=== PATIENT | male | born 1985 | race Caucasian/White ===

== ENCOUNTER 2022-11-07 14:45 | Outpatient (OUT) | payer OTHER, SELFPAY ==
--- NOTE | 2022-11-07 14:58 | XR_ITS ---
[address] [address] Patient Name: BROOKE NIEVES MRN: [id number] date: 1985 Sex: M Assigned Patient Location: RAD Current Patient Location: [facility] Accession/Order Number: [id number] Exam Date: 11/07/2022 15:00 Report Date: 11/09/2022 07:53 At the request of: CHACE STATON Procedure: XR abdomen 1V EXAMINATION: XR abdomen 1V HISTORY: Kidney stone COMPARISON: 07/03/2021 FINDINGS: KIDNEY/URETER - RIGHT: No visible renal or ureteral calcifications. KIDNEY/URETER - LEFT: No visible renal or ureteral calcifications. PELVIS: No visible ureteral calcifications. Any visible calcifications favor phleboliths. BOWEL: No abnormal dilation or deviation. BONES: No acute abnormality. OTHER: Negative. No abnormal gaseous collections. IMPRESSION: No definite urinary tract calculi Electronically authenticated by: JERRELL COLINDRES Date: 11/09/2022 07:53
== END 2022-11-07 14:46 | disposition home or self-care (01) ==
PROVIDERS: Visit Provider Urology
DX: N20.0 Calculus of kidney (principal)
CPT/HCPCS: 74018

== ENCOUNTER 2022-12-13 08:03 | Outpatient (OUT) | payer OTHER, SELFPAY ==
--- NOTE | 2022-12-13 08:26 | US_ITS ---
The [address] [address] Patient Name: BROOKE NIEVES MRN: [id number] date: 1985 Sex: M Assigned Patient Location: US Current Patient Location: US Accession/Order Number: [id number] Exam Date: 12/13/2022 08:34 Report Date: 12/13/2022 09:34 At the request of: CHACE STATON Procedure: US renal BI PROCEDURE: US renal BI DATE: 12/13/2022 7:34 AM CDT COMPARISONS: CT abdomen and pelvis from 12/25/2020 INDICATION FOR EXAMINATION: 36 years Male HEMATURIA R31.9 TECHNIQUE: Grayscale and color Doppler technique were utilized to evaluate the retroperitoneum. FINDINGS: KIDNEYS: The right kidney measures 11.0 x 6.0 x 5.9 cm. The left kidney measures 11.7 x 5.4 x 4.8 cm. There is no evidence of hydronephrosis. There is no ultrasonic evidence of solid focal renal masses or other significant renal parenchymal abnormalities. Subtle increased echogenicity is noted of the upper pole left kidney which could represent nonobstructing nephrolithiasis. There is no evidence of cortical thinning. URINARY BLADDER: There is no ultrasonic evidence of urinary bladder abnormalities. Bladder volume at the time of this exam is approximately 223 mL. ASSESSMENT: Possible nonobstructing nephrolithiasis identified upper pole left kidney. Ultrasound does not perfectly sensitive or specific in evaluating nephrolithiasis. The kidneys and urinary bladder show no other ultrasonic evidence of abnormalities. Electronically authenticated by: SYDNI KELLEY Date: 12/13/2022 09:34
== END 2022-12-13 08:04 | disposition home or self-care (01) ==
PROVIDERS: Visit Provider Urology
DX: R31.9 Hematuria, unspecified (principal)
CPT/HCPCS: 76775

== ENCOUNTER 2023-01-24 09:15 | Outpatient (OUT) | payer OTHER, SELFPAY ==
[2023-01-24 09:55] LABS: Basophils Percent Auto 0.7 % (0.2-2.0); Eosinophils Absolute Auto 0.1 10^3/uL (0.0-0.7); Eosinophils Percent Auto 2.5 % (0.9-7.0); Hematocrit 43.8 % (42.0-54.0); Hemoglobin 14.4 g/dL (14.0-18.0); Immature Granulocytes Abs Auto 0.02 10^3/uL (0.00-0.03); Immature Granulocytes Pct Auto 0.4 % (0.0-0.5); Lymphocytes Absolute Auto 1.4 10^3/uL (1.2-3.8); Lymphocytes Percent Auto 24.2 % (20.5-60.0); Mean Corpuscular HGB Conc 32.9 g/dL (29.9-35.2); Mean Corpuscular Hemoglobin 29.3 pg (25.9-34.0); Monocytes Absolute Auto 0.5 10^3/uL (0.3-0.8); Monocytes Percent Auto 8.5 % (1.7-12.0); Neutrophils Absolute Auto 3.6 10^3/uL (1.4-6.5); Neutrophils Percent Auto 63.7 % (43.0-75.0); Platelet Count 316 10^3/uL (150-450); Red Blood Count 4.92 10^6/uL (4.70-6.10); Red Cell Distribution Width 12.9 % (11.0-15.0); White Blood Count 5.6 10^3/uL (4.0-11.0)
[2023-01-24 10:52] LABS: Anion Gap 11.4; BUN Creatinine Ratio 17.7; Calcium 9.9 mg/dL (8.5-10.1); Carbon Dioxide 30.3 mmol/L (21.0-32.0); Chloride 103 mmol/L (98-107); Estimated GFR (African America >60 (>=60); Estimated GFR (Non-African Ame >60 (>=60); Glucose 100 mg/dL (74-106); Potassium 4.7 mmol/L (3.5-5.1); Sodium 140 mmol/L (136-145)
[2023-01-24 10:53] LABS: Alanine Aminotransferase 38 U/L (16-63); Albumin Globulin Ratio 1.1; Albumin Level 4.2 g/dL (3.4-5.0); Alkaline Phosphatase 73 U/L (46-116); Aspartate Amino Transferase 28 U/L (15-37); Bilirubin Total 0.4 mg/dL (0.2-1.0); Chol HDL Ratio 3.4; Cholesterol 249 mg/dL (<=200); HDL Cholesterol 73 mg/dL (40-60); Thyroid Stimulating Hormone 1.671 uIU/mL (0.358-3.740); Total Protein 8.2 g/dL (6.4-8.2); Triglycerides 44 mg/dL (<=150); VLDL CHOLESTEROL 8.8 mg/dL
[2023-01-24 11:22] LABS: Estimated Average Glucose 108 mg/dL; Glycohemoglobin A1C 5.4 % (4.5-6.2)
== END 2023-01-24 09:16 | disposition home or self-care (01) ==
LOC: LAB 09:16
PROVIDERS: PCP Internal Medicine; Visit Provider Internal Medicine
DX: Z00.00 Encounter for general adult medical examination without abnormal findings (principal); F41.1 Generalized anxiety disorder
CPT/HCPCS: 36415; 80053; 80061; 83036; 84443; 85025